=== PATIENT | male | born 1950 | race Caucasian/White ===

== ENCOUNTER 2023-04-14 21:06 | Inpatient (IN) | payer MEDICAID, OTHER ==
[~2023-04-14] VITALS: Ht 165.1 cm; Wt 64.9 kg
[2023-04-14 22:10] LABS: BASOPHILS % 0.5 % (0.0-2.0); EOSINOPHILS % 0.5 % (0.0-5.0); HEMATOCRIT. 40.4 % (42.0-52.0); HEMOGLOBIN. 13.6 g/dL (14.0-18.0); LYMPHOCYTES % 18.5 % (20.0-50.0); MEAN CORPUSCULAR HGB CONC 33.7 g/dL (31.0-37.0); MEAN CORPUSCULAR VOLUME 95.2 fL (80.0-94.0); MEAN PLATELET VOLUME 6.5 fl (7.4-10.4); MONOCYTES % 4.9 % (2.0-8.0); NEUTROPHILS % 75.6 % (40.0-76.0); PLATELET 259 x1000/uL (130-400); RED BLOOD CELL COUNT 4.24 mill/uL (4.7-6.1); RED CELL DISTRIBUTION WIDTH 13.5 % (11.6-14.6); WHITE BLOOD COUNT 7.1 x1000/uL (4.5-11.0)
[2023-04-14 22:24] LABS: ALANINE AMINOTRANSFERASE 15 IU/L (10-49); ALBUMIN 4.6 g/dL (3.2-4.8); ASPARTATE AMINOTRANSFERASE 20 IU/L (<34); BILIRUBIN TOTAL 0.3 mg/dL (0.1-1.0); CARBON DIOXIDE 21 mEq/L (21-32); CHLORIDE 107 mEq/L (98-107); CREATININE 1.3 mg/dL (0.6-1.3); GLUCOSE 181 mg/dL (70-105); LACTIC ACID 3.4 mmol/L (0.4-2.0); POTASSIUM 3.8 mEq/L (3.5-5.1); PROTEIN TOTAL 7.7 g/dL (6.0-8.3); SODIUM 138 mEq/L (136-145); UREA NITROGEN BLOOD 12 mg/dL (9-23)
[2023-04-14] MEDS: SODIUM CHLORIDE 0.9% 1000ML BAG (SEPSIS BOLUS) IV ONE (22:24)
[2023-04-14] MEDS: AZITHROMYCIN 500MG/250ML 250 ML IV ONE (22:30)
[2023-04-14 22:50] LABS: VALPROIC ACID 33.1 ug/mL (50-100)
[2023-04-14] MEDS: CEFTRIAXONE 1GM/50ML 50 ML IV ONE (22:55)
[2023-04-14 22:56] LABS: TROPONIN I HIGH SENSITIVITY < 4 ng/L (3.0-53)
[2023-04-14] MEDS: LEVETIRACETAM 500MG PREMIX 100 ML IV ONE (23:26)
[2023-04-14 23:51] LABS: CLARITY URINE CLEAR (CLEAR); COLOR URINE YELLOW (YELLOW); GLUCOSE URINE NEGATIVE (NEGATIVE); KETONES URINE NEGATIVE (NEGATIVE); LEUKOCYTE ESTERASE URINE NEGATIVE (NEGATIVE); NITRITE URINE NEGATIVE (NEGATIVE); OCCULT BLOOD URINE TRACE (NEGATIVE); PH URINE 5.5 (4.5-8.0); PROTEIN URINE NEGATIVE (NEGATIVE); SPECIFIC GRAVITY URINE 1.012 (1.005-1.030); UROBILINOGEN URINE 0.2 E.U./dL (0.2-1.0)
[2023-04-15 04:10] LABS: RBC URINE 0-2 /hpf (0-2); SQUAMOUS EPITHELIAL CELL URINE NONE SEEN /lpf (RARE/1+); WBC URINE 0-2 /hpf (0-2)
[2023-04-15 04:11] LABS: BACTERIA URINE NONE SEEN
[2023-04-15 04:20] VITALS: BP 134/83; PULSE 89; RESP 18; TEMP 97.9
[2023-04-15 05:48] VITALS: BP 134/82; PULSE 63; RESP 18; TEMP 97.9
[2023-04-15 08:00] VITALS: BP 120/69; PULSE 94; RESP 18; TEMP 98.4
[2023-04-15] MEDS ORDERED: DOCUSATE SODIUM 100MG CAPSULE PO PRN (09:00)
[2023-04-15] MEDS ORDERED: ONDANSETRON HCL 4MG/2ML INJ IV PRN (09:00)
[2023-04-15] MEDS ORDERED: IPRATROPIUM/ALBUTEROL 0.5-3(2.5)MG/3ML NEB HHN PRN (09:00)
[2023-04-15] MEDS ORDERED: CLONIDINE 0.1MG TABLET PO PRN (09:00)
[2023-04-15] MEDS ORDERED: FERR325T6 PO (09:52)
[2023-04-15] MEDS ORDERED: LEVE1000 PO (09:52)
[2023-04-15] MEDS ORDERED: LEVO100T9 PO (09:52)
[2023-04-15] MEDS ORDERED: AMLO5TAB4 PO (09:52)
[2023-04-15] MEDS ORDERED: PANT40SU PO (09:52)
[2023-04-15] MEDS ORDERED: MONT-39 PO (09:53)
[2023-04-15] MEDS: ACETAMINOPHEN 325MG TABLET PO PRN (09:58)
[2023-04-15] MEDS ORDERED: DIVA-75 PO (10:05)
[2023-04-15 12:00] VITALS: BP 93/51; PULSE 99; RESP 20; TEMP 98.1
[2023-04-15] MEDS: DIVALPROEX SODIUM 500MG DR TABLET PO SCH (12:41)
[2023-04-15] MEDS: LEVETIRACETAM 500MG TABLET PO SCH (12:41)
[2023-04-15 16:00] VITALS: BP 118/84; PULSE 92; RESP 18; TEMP 98.4
[2023-04-15] MEDS: PANTOPRAZOLE 40MG DR TABLET PO SCH (16:10)
[2023-04-15] MEDS: LEVOTHYROXINE SODIUM 100MCG TABLET PO SCH (16:10)
[2023-04-15] MEDS: MONTELUKAST SODIUM 10MG TABLET PO SCH (17:56)
[2023-04-15 20:00] VITALS: BP 110/63; PULSE 75; RESP 20; TEMP 101
[2023-04-15] MEDS ORDERED: AZITHROMYCIN 250 MG in DEXT 5% WATER 250 ML IV SCH (23:00)
[2023-04-16] VITALS: BP 118/70; PULSE 79; RESP 20; TEMP 99
[2023-04-16] MEDS: ACETAMINOPHEN 325MG TABLET PO PRN (00:18)
[2023-04-16] MEDS: AZITHROMYCIN 500MG/250ML 250 ML IV SCH (00:18)
[2023-04-16] MEDS: CEFTRIAXONE 1GM/50ML 50 ML IV SCH (01:06)
[2023-04-16 04:00] VITALS: BP 120/70; PULSE 80; RESP 20; TEMP 98
[2023-04-16 07:39] LABS: BASOPHILS % 0.3 % (0.0-2.0); EOSINOPHILS % 0.1 % (0.0-5.0); HEMATOCRIT. 36.2 % (42.0-52.0); HEMOGLOBIN. 12.6 g/dL (14.0-18.0); MEAN CORPUSCULAR HEMOGLOBIN 32.6 pg (28.0-32.0); MEAN CORPUSCULAR HGB CONC 34.8 g/dL (31.0-37.0); MEAN CORPUSCULAR VOLUME 93.8 fL (80.0-94.0); MEAN PLATELET VOLUME 6.7 fl (7.4-10.4); MONOCYTES % 9.1 % (2.0-8.0); NEUTROPHILS % 66.5 % (40.0-76.0); PLATELET 261 x1000/uL (130-400); RED BLOOD CELL COUNT 3.86 mill/uL (4.7-6.1); RED CELL DISTRIBUTION WIDTH 13.5 % (11.6-14.6); WHITE BLOOD COUNT 9.1 x1000/uL (4.5-11.0)
[2023-04-16 08:00] VITALS: BP 136/67; PULSE 78; RESP 20; TEMP 97.8
[2023-04-16 08:18] LABS: CALCIUM 8.8 mg/dL (8.7-10.4); CREATININE 1.2 mg/dL (0.6-1.3); VALPROIC ACID 32.5 ug/mL (50-100)
[2023-04-16] MEDS: AMLODIPINE 5MG TABLET PO SCH (08:35)
[2023-04-16 12:00] VITALS: BP 113/55; PULSE 71; RESP 20; TEMP 97.9
[2023-04-16 16:00] VITALS: BP 107/61; PULSE 74; RESP 20; TEMP 98.2
[2023-04-16 20:43] VITALS: BP 124/82; PULSE 79; RESP 20; TEMP 98.6
[2023-04-17 00:05] VITALS: BP 137/75; PULSE 79; RESP 19; TEMP 97.5
[2023-04-17 04:00] VITALS: BP 131/73; PULSE 66; RESP 19; TEMP 97.3
[2023-04-17 06:30] LABS: BASOPHILS % 0.6 % (0.0-2.0); EOSINOPHILS % 0.4 % (0.0-5.0); HEMOGLOBIN. 13.4 g/dL (14.0-18.0); LYMPHOCYTES % 30.9 % (20.0-50.0); MEAN CORPUSCULAR HEMOGLOBIN 32.5 pg (28.0-32.0); MEAN CORPUSCULAR HGB CONC 34.3 g/dL (31.0-37.0); MEAN CORPUSCULAR VOLUME 94.5 fL (80.0-94.0); MEAN PLATELET VOLUME 6.5 fl (7.4-10.4); MONOCYTES % 9.3 % (2.0-8.0); NEUTROPHILS % 58.8 % (40.0-76.0); PLATELET 269 x1000/uL (130-400); RED BLOOD CELL COUNT 4.13 mill/uL (4.7-6.1); RED CELL DISTRIBUTION WIDTH 13.5 % (11.6-14.6); WHITE BLOOD COUNT 8.5 x1000/uL (4.5-11.0)
[2023-04-17 07:15] LABS: CALCIUM 8.8 mg/dL (8.7-10.4); CREATININE 1.2 mg/dL (0.6-1.3); POTASSIUM 3.8 mEq/L (3.5-5.1)
[2023-04-17 08:00] VITALS: BP 123/63; PULSE 61; RESP 18; TEMP 98.2
[2023-04-17] MEDS: FAMOTIDINE 20MG TABLET PO SCH (08:59)
[2023-04-17 12:00] VITALS: BP 116/69; PULSE 74; RESP 16; TEMP 97.7
[2023-04-17 16:00] VITALS: BP 112/66; PULSE 71; RESP 18; TEMP 98
[2023-04-17 18:27] VITALS: BP 112/66; PULSE 96; TEMP 98.2; O2SAT 96
== END 2023-04-17 18:56 | disposition home or self-care (01) | DRG 101 ==
LOC: ER 21:06 → 7WST 04-15 02:04 → EDBEDREQ 04-15 02:06
PROVIDERS: ADMIT Internal Medicine; ATTEND Internal Medicine
PROC: 4A00X4Z Measurement of Central Nervous Electrical Activity, External Approach (ICD-10-PCS; principal; 2023-04-17)
DX: G40.909 Epilepsy, unspecified, not intractable, without status epilepticus (principal); E87.20 Acidosis, unspecified; R25.1 Tremor, unspecified; D53.9 Nutritional anemia, unspecified; E03.9 Hypothyroidism, unspecified; F17.200 Nicotine dependence, unspecified, uncomplicated; G93.89 Other specified disorders of brain; I10 Essential (primary) hypertension; Z86.73 Personal history of transient ischemic attack (TIA), and cerebral infarction without residual deficits
CPT/HCPCS: 36415; 70551; 71045; 80048; 80053; 80165; 81003; 83605; 84145; 84484; 85025; 93005; 95816; 99291; J0456; J0696; J1953; J7030; J7060